=== PATIENT | female | born 1975 | race Caucasian/White ===

== ENCOUNTER 2018-06-17 14:41 | Emergency (ER) | payer OTHER, SELFPAY ==
[2018-06-17] MEDS ORDERED: ONDANSETRON 4 MG (ODT) TAB ONE (15:32)
[2018-06-17] MEDS ORDERED: PROMETHAZINE 25 MG/ML VIAL ONE (15:32)
--- NOTE | 2018-06-17 16:01 | ER ---
Nurse's Notes [facility] Name: Chelsea Bonilla Age: 43 yrs Sex: Female : 1975 Arrival Date: 06/17/2018 Time: 14:44 Bed 8 Private MD: Diagnosis: Chronic pain, not elsewhere classified Presentation: 06/17 15:01 Presenting complaint: Patient states: HEADACHE SINCE THIS MORNING, KIDNEY STONES STILL ch NOT RESOLVED FROM LAST MONTH, PAIN TO L KNEE FOR THE PAST WEEK. I HAVE DYSTONIA, I CANT KEEP MY MEDICATIONS DOWN BECAUSE I AM VOMITING SO MUCH. Transition of care: patient was not received from another setting of care. Onset of symptoms was June 09, 2018. Risk Assessment: Do you want to hurt yourself or someone else? Patient reports no desire to harm self or others. Initial Sepsis Screen: Does the patient meet any 2 criteria? No. Patient's initial sepsis screen is negative. Does the patient have a suspected source of infection? No. Patient's initial sepsis screen is negative. Care prior to arrival: None. 15:01 Method Of Arrival: Ambulatory 15:01 Acuity: OVIDIO 4 ch Triage Assessment: 15:04 Headache History: The patient has had previous headaches and this one is similar to previous episodes. General: Appears in no apparent distress. uncomfortable, Behavior is calm, cooperative, appropriate for age. Pain: Complains of pain in head, left knee, posterior chest and back Pain currently is 8 out of 10 on a pain scale. Pain began gradually, WEEKS AGO Also complains of nausea, VOMITING. Neuro: Level of Consciousness is awake, alert, obeys commands, Oriented to person, place, time, Asbestos Brake Lining Finisher are equal bilaterally Moves all extremities. Full function Gait is steady, Speech is normal, Facial symmetry appears normal, Facial symmetry: tongue is midline. 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/A - Hysterectomy ch Historical: - Allergies: 15:04 Acetazolamide; ch 15:04 Codeine; ch 15:04 Demerol; ch 15:04 Diamox; ch 15:04 Fentanyl; ch 15:04 Ibuprofen; ch 15:04 Ketorolac; ch 15:04 ketorolac tromethamine; ch 15:04 Lyrica; ch 15:04 pregabalin; ch - Home Meds: 15:04 baclofen 10 mg Oral tab 1 tab 3 times per day [Active]; Keppra 1,000 mg Oral tab 1 tab ch TID [Active]; Klonopin 2 mg Oral tab 2 tabs 3 times per day [Active]; Singulair 10 mg Oral tab 1 tab once daily [Active]; tiazadine [Active]; Phenergan Oral [Active]; - PMHx: 15:04 Chronic pain; dystonia parkinsons; PSEUDOTUMOR HEAD; Seizures; tremors; Kidney stones; ch Headaches; - PSHx: 15:04 left knee surgery; Hysterectomy; nasal sx; pavel wrists; Cholecystectomy; Appendectomy; ch Lithotripsy; - Immunization history:: Adult Immunizations up to date. - Social history:: Smoking status: Patient/guardian denies using tobacco. - Ebola Screening: : Patient negative for fever greater than or equal to 101.5 degrees Fahrenheit, and additional compatible Ebola Virus Disease symptoms Patient denies exposure to infectious person Patient denies travel to an Ebola-affected area in the 21 days before illness onset No symptoms or risks identified at this time. Screenin:28 Abuse screen: Denies threats or abuse. Nutritional screening: No deficits noted. aa5 Tuberculosis screening: No symptoms or risk factors identified. Fall Risk Fall in past 12 months (25 points). Secondary diagnosis (15 points) Total Barth Fall Scale indicates Low Risk Score (25-44 pts). Fall prevention measures have been instituted. Side Rails Up X 2. Assessment: 15:28 General: Appears comfortable, Behavior is calm, cooperative. Pain: Complains of pain in aa5 forehead, low back, and left knee Pain does not radiate. Pain currently is 8 out of 10 on a pain scale. Quality of pain is described as aching, sharp, shooting, Pain began pt reports back pain began 1 month ago, knee pain began 1 week ago post fall, and headache on and off "for a while" Is intermittent. 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 Speech is normal, Pupils are PERRLA. Cardiovascular: Heart tones S1 S2 present Rhythm is regular. Respiratory: Airway is patent Respiratory effort is even, unlabored, Respiratory pattern is regular, symmetrical. GI: Abdomen is round non-distended, Bowel sounds present X 4 quads. Abd is soft and non tender X 4 quads. Reports nausea, vomiting. : No signs and/or symptoms were reported regarding the genitourinary system. EENT: No signs and/or symptoms were reported regarding the EENT system. Derm: Skin is pink, warm \\T\\ dry. Musculoskeletal: Range of motion: intact in all extremities. 15:56 Reassessment: Patient and/or family updated on plan of care and expected duration. Pain aa5 level reassessed. Patient is alert, oriented x 3, equal unlabored respirations, skin warm/dry/pink. Patient states feeling better. ELISHA bandage applied to left knee . Vital Signs: 15:04 BP 100 / 84; Pulse 101; Resp 18; Temp 97.8; Pulse Ox 97% on R/A; Weight 83.91 kg; ch Height 5 ft. 4 in. (162.56 cm); Pain 8/10; 15:04 Body Mass Index 31.75 (83.91 kg, 162.56 cm) ED Course: 14:44 Patient arrived in ED. as 15:02 Triage completed. ch 15:04 Arm band placed on left wrist. Patient placed in an exam room, on a stretcher. ch 15:12 Hortencia Trevino, RN is Primary Nurse. aa5 15:14 Sidney Florez MD is Attending Physician. ma2 15:26 Imani De La Cruz FNP-C is PHCP. snw 15:28 Patient has correct armband on for positive identification. Bed in low position. Call aa5 light in reach. Side rails up X2. Adult w/ patient. 16:40 No provider procedures requiring assistance completed. Patient did not have IV access tw2 during this emergency room visit. Administered Medications: 15:28 Drug: Phenergan 25 mg Route: IM; Site: right gluteus; aa5 15:56 Follow up: Response: No adverse reaction aa5 15:28 Drug: Zofran 4 mg Route: PO; aa5 15:56 Follow up: Response: No adverse reaction aa5 16:30 Drug: [place] 5 mg-325 mg 1 tabs Route: PO; tw2 16:40 Follow up: Response: No adverse reaction tw2 Outcome: 16:01 Discharge ordered by . snw 16:40 Discharged to home via wheelchair, with friend. tw2 16:40 Condition: stable 16:40 Discharge instructions given to patient, friend, Instructed on discharge instructions, follow up and referral plans. no drinking with medication, no driving heavy equipment, medication usage, Demonstrated understanding of instructions, follow-up care, medications, Prescriptions given X 4. 16:41 Patient left the ED. tw2 Signatures: Nell Sherwood RN RN Imani De La Cruz, TIMERS INSPECTOR-C TIMERS INSPECTOR-Csnw Dariela Peña Audri, RN RN aa5 Patti Billingsley RN RN tw2 Sidney Florez MD MD ma2 Corrections: (The following items were deleted from the chart) 16:01 15:28 Fall Risk None identified. aa5 aa5 16:10 15:01 Acuity: OVIDIO 3 [facility]
--- NOTE | 2018-06-17 16:01 | EDPHYS ---
Physician Documentation [facility] Name: Chelsea Bonilla Age: 43 yrs Sex: Female : 1975 Arrival Date: 06/17/2018 Time: 14:44 Bed 8 Private MD: ED Physician Sidney Florez HPI: 06/17 16:11 This 43 yrs old Female presents to ER via Ambulatory with complaints of Knee snw Pain, Headache. 16:11 Pt has chronic pain, dystonic movements, states she is unable to tolerate medications snw for headache second to N/V. States she has kidney stone pain chronically, is complaining of left knee pain.. Onset: The symptoms/episode began/occurred gradually, and became persistent. Severity of symptoms: At their worst the symptoms were moderate severe in the emergency department the symptoms are unchanged. The patient has experienced similar episodes in the past, chronically. here visiting from [place]. 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 - Hysterectomy ch Historical: - Allergies: 15:04 Acetazolamide; ch 15:04 Codeine; ch 15:04 Demerol; ch 15:04 Diamox; ch 15:04 Fentanyl; ch 15:04 Ibuprofen; ch 15:04 Ketorolac; ch 15:04 ketorolac tromethamine; ch 15:04 Lyrica; ch 15:04 pregabalin; ch - Home Meds: 15:04 baclofen 10 mg Oral tab 1 tab 3 times per day [Active]; Keppra 1,000 mg Oral tab 1 tab ch TID [Active]; Klonopin 2 mg Oral tab 2 tabs 3 times per day [Active]; Singulair 10 mg Oral tab 1 tab once daily [Active]; tiazadine [Active]; Phenergan Oral [Active]; - PMHx: 15:04 Chronic pain; dystonia parkinsons; PSEUDOTUMOR HEAD; Seizures; tremors; Kidney stones; ch Headaches; - PSHx: 15:04 left knee surgery; Hysterectomy; nasal sx; pavel wrists; Cholecystectomy; Appendectomy; ch Lithotripsy; - Immunization history:: Adult Immunizations up to date. - Social history:: Smoking status: Patient/guardian denies using tobacco. - Ebola Screening: : Patient negative for fever greater than or equal to 101.5 degrees Fahrenheit, and additional compatible Ebola Virus Disease symptoms Patient denies exposure to infectious person Patient denies travel to an Ebola-affected area in the 21 days before illness onset No symptoms or risks identified at this time. ROS: 16:09 Constitutional: Negative for fever, chills, and weight loss, Eyes: Negative for injury, snw pain, redness, and discharge, ENT: Negative for injury, pain, and discharge, Neck: Negative for injury, pain, and swelling, Cardiovascular: Negative for chest pain, palpitations, and edema, Respiratory: Negative for shortness of breath, cough, wheezing, and pleuritic chest pain. 16:09 Back: Negative for injury and pain, : Negative for injury, bleeding, discharge, and swelling, Skin: Negative for injury, rash, and discoloration. 16:09 Abdomen/GI: Positive for nausea and vomiting. 16:09 MS/extremity: Positive for contusion, pain, of the left knee. Exam: 16:07 Head/Face: Normocephalic, atraumatic. Eyes: Pupils equal round and reactive to light, snw extra-ocular motions intact. Lids and lashes normal. Conjunctiva and sclera are non-icteric and not injected. Cornea within normal limits. Periorbital areas with no swelling, redness, or edema. ENT: Nares patent. No nasal discharge, no septal abnormalities noted. Tympanic membranes are normal and external auditory canals are clear. Oropharynx with no redness, swelling, or masses, exudates, or evidence of obstruction, uvula midline. Mucous membranes moist. Neck: Trachea midline, no thyromegaly or masses palpated, and no cervical lymphadenopathy. Supple, full range of motion without nuchal rigidity, or vertebral point tenderness. No Meningismus. Chest/axilla: Normal chest wall appearance and motion. Nontender with no deformity. No lesions are appreciated. Cardiovascular: Regular rate and rhythm with a normal S1 and S2. No gallops, murmurs, or rubs. Normal PMI, no JVD. No pulse deficits. Respiratory: Lungs have equal breath sounds bilaterally, clear to auscultation and percussion. No rales, rhonchi or wheezes noted. No increased work of breathing, no retractions or nasal flaring. Abdomen/GI: Soft, non-tender, with normal bowel sounds. No distension or tympany. No guarding or rebound. No evidence of tenderness throughout. Back: No spinal tenderness. No costovertebral tenderness. Full range of motion. Skin: Warm, dry with normal turgor. Normal color with no rashes, no lesions, and no evidence of cellulitis. 16:07 Constitutional: The patient appears alert, awake, obese. 16:07 Musculoskeletal/extremity: Extremities: grossly normal except: noted in the left knee: tenderness, Circulation is intact in all extremities. Sensation intact. 16:09 Neuro: Orientation: is normal, Mentation: is normal, Memory: is normal, Cerebellar snw function: + dystonia, abnormal movements. Vital Signs: 15:04 BP 100 / 84; Pulse 101; Resp 18; Temp 97.8; Pulse Ox 97% on R/A; Weight 83.91 kg; ch Height 5 ft. 4 in. (162.56 cm); Pain 8; 15:04 Body Mass Index 31.75 (83.91 kg, 162.56 cm) ch MDM: 15:14 Patient medically screened. ma2 16:08 Data reviewed: vital signs, nurses notes. Data interpreted: Pulse oximetry: on room air snw is 97 %. Interpretation: normal. Counseling: I had a detailed discussion with the patient and/or guardian regarding: the historical points, exam findings, and any diagnostic results supporting the discharge/admit diagnosis, the need for outpatient follow up, to return to the emergency department if symptoms worsen or persist or if there are any questions or concerns that arise at home. 06/17 15:30 Order name: Anuel wrap-joint: left knee; Complete Time: 15:56 snw Administered Medications: 15:28 Drug: Phenergan 25 mg Route: IM; Site: right gluteus; aa5 15:56 Follow up: Response: No adverse reaction aa5 15:28 Drug: Zofran 4 mg Route: PO; aa5 15:56 Follow up: Response: No adverse reaction aa5 16:30 Drug: [place] 5 mg-325 mg 1 tabs Route: PO; tw2 16:40 Follow up: Response: No adverse reaction tw2 Disposition: 18:24 Co-signature as Attending Physician, Sidney Florez MD. ct2 Disposition: 06/17/18 16:01 Discharged to Home. Impression: Chronic pain, not elsewhere classified. - Condition is Stable. - Discharge Instructions: Chronic Pain, Knee Pain. - Prescriptions for Zofran 4 mg Oral Tablet - take 1 tablet by ORAL route every 12 hours As needed; 6 tablet. Tylenol- Codeine #3 300-30 mg Oral Tablet - take 1 tablet by ORAL route every 6 hours As needed; 6 tablet. Baclofen 10 mg Oral Tablet - take 1 tablet by ORAL route 3 times per day; 20 tablet. promethazine 25 mg Oral Tablet - take 1 tablet by ORAL route every 6 hours As needed; 20 tablet. - Medication Reconciliation Form, Thank You Letter, Antibiotic Education, Prescription Opioid Use form. - Follow up: Private Physician; When: 2 - 3 days; Reason: Recheck today's complaints, Continuance of care, Re-evaluation by your physician. Follow up: Emergency Department; When: As needed; Reason: Worsening of condition. Signatures: Nell Sherwood, RN RN Imani De La Cruz, CRICKET COACH-C CRICKET COACH-Csnw Hortencia Trevino RN RN aa5 Patti Billingsley RN RN tw2 Sidney Florez MD MD ma2 Corrections: (The following items were deleted from the chart) 16:10 16:07 Musculoskeletal/extremity: Extremities: grossly normal except: noted in the left snw knee: tenderness, Circulation is intact in all extremities. Sensation intact. [facility] 16:41 16:01 06/17/2018 16:01 Discharged to Home. Impression: Chronic pain, not elsewhere tw2 classified. Condition is Stable. Forms are Medication Reconciliation Form, Thank You Letter, Antibiotic Education, Prescription Opioid Use. Follow up: Private Physician; When: 2 - 3 days; Reason: Recheck today's complaints, Continuance of care, Re-evaluation by your physician. Follow up: Emergency Department; When: As needed; Reason: Worsening of condition. snw
[2018-06-17] MEDS ORDERED: HYDROCODONE/APAP 5/325 MG TAB ONE (16:40)
[2018-06-18 14:50] VITALS: BP 100/84; TEMP 97.8; O2SAT 97
== END 2018-06-17 16:41 | disposition home or self-care (01) ==
LOC: ER 14:41
DX: G89.29 Other chronic pain (principal); G20 Parkinson's disease; G40.909 Epilepsy, unspecified, not intractable, without status epilepticus; Z88.5 Allergy status to narcotic agent; Z88.6 Allergy status to analgesic agent; Z88.8 Allergy status to other drugs, medicaments and biological substances
CPT/HCPCS: 96372; 99283; J2550